=== PATIENT | female | born 1950 | race Caucasian/White ===

== ENCOUNTER 2017-10-02 18:58 | Inpatient (IN) | payer MEDICARE, BC ==
[2017-10-02] MEDS ORDERED: ONDANSETRON 4 MG/2 ML VIAL IVP STA (19:39)
[2017-10-02] MEDS: HYDROmorphone 1 MG/ML 1 ML SYRINGE IVP STA ×2 (19:46→19:48)
[2017-10-02] MEDS ORDERED: HYDROmorphone 1 MG/ML 1 ML SYRINGE IVP STA (19:48)
--- NOTE | 2017-10-02 20:20 | XR ---
EXAMINATION TYPE: XR chest 1V DATE OF EXAM: 10/02/2017 COMPARISON: NONE HISTORY: Preop TECHNIQUE: Single frontal view of the chest is obtained. FINDINGS: There is no heart failure nor confluent pneumonic infiltrate. There is left shoulder prost hesis. Costophrenic angles are clear. There is spurring in the thoracic spine. There is osteoarthriti s in the right shoulder joint. IMPRESSION: No active cardiopulmonary disease.
--- NOTE | 2017-10-02 20:20 | XR ---
EXAMINATION TYPE: XR Hip LT and AP Pelvis DATE OF EXAM: 10/02/2017 COMPARISON: NONE HISTORY: Hip pain TECHNIQUE: A single AP view of the pelvis is obtained. Two views of the left hip are obtained. FINDINGS: There is an acute comminuted intertrochanteric fracture of the left femur. Pelvic ring yvonne ears intact. There is no dislocation. CONCLUSION: Acute comminuted intratrochanteric fracture left femur with displacement up to 1 cm.
[2017-10-02 20:46] LABS: Basophils % (A) 0 %; CH 26.8; CHCM 32.6; Eosinophils # (A) 0.1 k/uL (0-0.7); Eosinophils % (A) 1 %; HCT 37.8 % (34.0-46.0); HDW 2.64; HGB 12.3 gm/dL (11.4-16.0); Luc # (Auto) 0.04; Luc % (Auto) 0; Lymphocytes # (A) 1.1 k/uL (1.0-4.8); Lymphocytes % (A) 11 %; MCHC 32.7 g/dL (31.0-37.0); MCV 82.6 fL (80.0-100.0); Mean Platelet Volume 8.3; Monocytes # (A) 0.3 k/uL (0-1.0); Monocytes % (A) 3 %; Neutrophils # (A) 8.6 k/uL (1.3-7.7); Neutrophils % (A) 85 %; RBC 4.57 m/uL (3.80-5.40); RDW 15.7 % (11.5-15.5); WBC 10.2 k/uL (3.8-10.6); WBC (Perox) 11.09
[2017-10-02 20:55] LABS: Partial Thromboplastin Time 23.4 sec (22.0-30.0); Prothrombin Time 10.3 sec (9.0-12.0)
[2017-10-02 21:00] LABS: ALT 39 U/L (9-52); AST 27 U/L (14-36); Alkaline Phosphatase 112 U/L (38-126); Anion Gap 9 mmol/L; Blood Urea Nitrogen 16 mg/dL (7-17); Calcium 9.2 mg/dL (8.4-10.2); Carbon Dioxide 23 mmol/L (22-30); Chloride 107 mmol/L (98-107); Glucose 135 mg/dL (74-99); Non-African American GFR(MDRD) >60 (>60 ml/min/1.73 sqM); Potassium 4.3 mmol/L (3.5-5.1); Sodium 139 mmol/L (137-145); Total Bilirubin 0.3 mg/dL (0.2-1.3); Total Protein 6.8 g/dL (6.3-8.2)
[2017-10-02] MEDS ORDERED: NALOXONE 0.4 MG/ML 1 ML VIAL IV PRN (21:13)
[2017-10-02] MEDS ORDERED: DIAZEPAM 5 MG/ML 2 ML INJ IVP PRN (21:16)
[2017-10-02 21:26] LABS: Appearance,Urine Clear (Clear); Bacteria,Urine Rare /hpf; Bilirubin,Urine Negative (Negative); Glucose,Urine (UA) 4+ (Negative); Ketones,Urine Trace (Negative); Leukocyte Esterase,Urine Negative (Negative); Nitrite,Urine Positive (Negative); PH, Urine 6.5 (5.0-8.0); Particle Count 14561; Protein,Urine Negative (Negative); RBC,Urine <1 /hpf (0-5); Specific Gravity,Urine 1.022 (1.001-1.035); Squamous Epithelial Cell,Urine <1 /hpf (0-4); UA Billing (MACRO vs. MICRO) MICRO; Urobilinogen,Urine <2.0 mg/dL (<2.0); WBC,Urine 3 /hpf (0-5)
--- NOTE | 2017-10-02 21:30 | ED ---
Fall HPI - General Chief Complaint: Fall Stated Complaint: Fall-no head injury Time Seen by Provider: 10/02/17 19:27 Source: patient, EMS Mode of arrival: EMS - History of Present Illness Initial Comments: 66 year-old female patient presents to the emergency department today for complaints of left hip pain. Patient states approximate 1.5 hours prior to arrival she was going down a step when she lost her footing and fell landing on the left side. She states that she had immediate pain to the left hip region and was unable to get up or ambulate. States her pain is mostly in the left anterior hip and into her left groin. She denies any numbness or tingling to the left leg. She did get 10 mg of morphine IV from EMS, but is currently rating her pain at a 7 out of 10 on a pain scale. She denies hitting her head or losing consciousness with this injury. She states that she did put her left hand out in front of her to try to catch herself and does have some mild left wrist pain. She denies any difficulty with range of motion to left wrist. Denies any numbness or tingling to her left hand. She denies any other injuries. Patient denies any headache, neck pain, back pain, chest pain, shortness of breath, dizziness, weakness, abdominal pain, nausea, vomiting, or difficulties with bowel movements or urination. - Related Data Home Medications Medication Instructions Recorded Confirmed Cholecalciferol [Vitamin D3] 1,000 unit PO DAILY 10/02/17 10/02/17 Empagliflozin [Jardiance] 25 mg PO DAILY 10/02/17 10/02/17 INSULIN LISPRO (HumaLOG) [HumaLOG] See Protocol SQ ACHS 10/02/17 10/02/17 Insulin Glargine [Lantus] 35 units SQ HS 10/02/17 10/02/17 Liraglutide [Victoza 2-Juan] 1.8 mg SQ HS 10/02/17 10/02/17 Lisinopril [Zestril] 20 mg PO BID 10/02/17 10/02/17 Montelukast [Singulair] 10 mg PO HS 10/02/17 10/02/17 PARoxetine [Paxil] 20 mg PO DAILY 10/02/17 10/02/17 Simvastatin [Zocor] 20 mg PO HS 10/02/17 10/02/17 Tolterodine Tartrate [Detrol LA] 4 mg PO DAILY 10/02/17 10/02/17 metFORMIN HCL 1,000 mg PO DAILY 10/02/17 10/02/17 Allergies Allergy/AdvReac Type Severity Reaction Status Date / Time codeine Allergy Rash/Hives Verified 10/02/17 19:34 erythromycin base Allergy Rash/Hives Verified 10/02/17 19:34 Review of Systems ROS Statement: Those systems with pertinent positive or pertinent negative responses have been documented in the HPI. ROS Other: All systems not noted in ROS Statement are negative. Past Medical History Past Medical History: Diabetes Mellitus, Hyperlipidemia, Hypertension History of Any Multi-Drug Resistant Organisms: None Reported Past Surgical History: Appendectomy, Section, Joint Replacement, Tonsillectomy Additional Past Surgical History / Comment(s): right knee replacement, left shoulder replacement Past Psychological History: Anxiety, Depression Smoking Status: Never smoker Past Alcohol Use History: Occasional Past Drug Use History: None Reported General Exam Limitations: no limitations General appearance: alert, in no apparent distress, other (This is a well- developed, well-nourished obese female patient in no acute distress. Vital signs upon presentation are temperature 97.8, pulse 86, respirations 24, blood pressure 146/63, pulse ox 99% on room air.) Head exam: Present: atraumatic, normocephalic, normal inspection Eye exam: Present: normal appearance, PERRL, EOMI. Absent: scleral icterus, conjunctival injection, nystagmus, periorbital swelling ENT exam: Present: normal exam, normal oropharynx, mucous membranes moist Neck exam: Present: normal inspection, full ROM, other (Nontender, no step-off, no deformity to firm midline palpation of the posterior cervical spine. Full range of motion without pain or limitation.). Absent: tenderness, meningismus, lymphadenopathy Respiratory exam: Present: normal lung sounds bilaterally. Absent: respiratory distress, wheezes, rales, rhonchi, stridor Cardiovascular Exam: Present: regular rate, normal rhythm, normal heart sounds. Absent: systolic murmur, diastolic murmur, rubs, gallop, clicks GI/Abdominal exam: Present: soft, normal bowel sounds. Absent: distended, tenderness, guarding, rebound, rigid Extremities exam: Present: tenderness (Tenderness over the anterior left hip), normal capillary refill, other (Skin to the left lower extremities pink, warm, and dry. Cap refills less than 3 seconds. Pedal posttibial pulses 2+ and equal bilaterally. Left hand and wrist skin is pink, warm, and dry. Cap refill to the left hand is less than 3 seconds. Radial pulses 2+ and equal bilaterally.). Absent: normal inspection (Left leg shortening and external rotation noted), full ROM (Decreased range of motion to left hip due to severe pain with attempts at moving it. Patient has full range of motion to the left wrist without pain or limitation.), pedal edema, joint swelling, calf tenderness Back exam: Present: normal inspection. Absent: vertebral tenderness Neurological exam: Present: alert, oriented X3, CN II-XII intact Psychiatric exam: Present: normal affect, normal mood Skin exam: Present: warm, dry, intact, normal color. Absent: rash Course Vital Signs 10/02/17 10/02/17 19:07 21:16 Temperature 97.8 F 98.0 F Pulse Rate 86 99 Respiratory 24 20 Rate Blood Pressure 146/63 134/60 O2 Sat by Pulse 99 95 Oximetry Medical Decision Making - Medical Decision Making 66-year-old female patient presents to the emergency department today for evaluation of left hip pain after a fall. Physical examination did reveal shortening and external rotation of the left leg. Distal pulses are intact. Skin is pink, warm, and dry. Neurovascular status is intact. Patient is also complaining of some left wrist discomfort however has full range of motion, no anatomical snuffbox tenderness, skin is pink, warm, and dry, and pulses are intact. She reports that the pain is mild. X-ray did show a comminuted mildly displaced intertrochanteric fracture of the left proximal femur. We did admit to Dr. Jimenez orthopedics, my attending Dr. Moreno did speak to him and he accepted patient. I did inform Jasvir Venegas with [facility] of medical consultation. Presurgical labs, EKG, and chest x-ray were obtained. - Lab Data Result diagrams: 10/02/17 20:32 10/02/17 20:32 Lab Results 10/02/17 10/02/17 10/02/17 Range/Units 20:32 20:32 20:32 WBC 10.2 (3.8-10.6) k/uL RBC 4.57 (3.80-5.40) m/uL Hgb 12.3 (11.4-16.0) gm/dL Hct 37.8 (34.0-46.0) % MCV 82.6 (80.0-100.0) fL MCH 27.0 (25.0-35.0) pg MCHC 32.7 (31.0-37.0) g/dL RDW 15.7 H (11.5-15.5) % Plt Count 168 (150-450) k/uL Neutrophils % 85 % Lymphocytes % 11 % Monocytes % 3 % Eosinophils % 1 % Basophils % 0 % Neutrophils # 8.6 H (1.3-7.7) k/uL Lymphocytes # 1.1 (1.0-4.8) k/uL Monocytes # 0.3 (0-1.0) k/uL Eosinophils # 0.1 (0-0.7) k/uL Basophils # 0.0 (0-0.2) k/uL PT 10.3 (9.0-12.0) sec INR 1.0 (<1.2) APTT 23.4 (22.0-30.0) sec Sodium 139 (137-145) mmol/L Potassium 4.3 (3.5-5.1) mmol/L Chloride 107 (98-107) mmol/L Carbon Dioxide 23 (22-30) mmol/L Anion Gap 9 mmol/L BUN 16 (7-17) mg/dL Creatinine 0.80 (0.52-1.04) mg/dL Est GFR (MDRD) Af Amer >60 (>60 ml/min/1.73 sqM) Est GFR (MDRD) Non-Af >60 (>60 ml/min/1.73 sqM) Glucose 135 H (74-99) mg/dL Calcium 9.2 (8.4-10.2) mg/dL Total Bilirubin 0.3 (0.2-1.3) mg/dL AST 27 (14-36) U/L ALT 39 (9-52) U/L Alkaline Phosphatase 112 (38-126) U/L Total Protein 6.8 (6.3-8.2) g/dL Albumin 3.9 (3.5-5.0) g/dL Urine Color Urine Appearance (Clear) Urine pH (5.0-8.0) Ur Specific Bellamy (1.001-1.035) Urine Protein (Negative) Urine Glucose (UA) (Negative) Urine Ketones (Negative) Urine Blood (Negative) Urine Nitrite (Negative) Urine Bilirubin (Negative) Urine Urobilinogen (<2.0) mg/dL Ur Leukocyte Esterase (Negative) Urine RBC (0-5) /hpf Urine WBC (0-5) /hpf Ur Squamous Epith Cells (0-4) /hpf Urine Bacteria (None) /hpf 10/02/17 Range/Units 21:10 WBC (3.8-10.6) k/uL RBC (3.80-5.40) m/uL Hgb (11.4-16.0) gm/dL Hct (34.0-46.0) % MCV (80.0-100.0) fL MCH (25.0-35.0) pg MCHC (31.0-37.0) g/dL RDW (11.5-15.5) % Plt Count (150-450) k/uL Neutrophils % % Lymphocytes % % Monocytes % % Eosinophils % % Basophils % % Neutrophils # (1.3-7.7) k/uL Lymphocytes # (1.0-4.8) k/uL Monocytes # (0-1.0) k/uL Eosinophils # (0-0.7) k/uL Basophils # (0-0.2) k/uL PT (9.0-12.0) sec INR (<1.2) APTT (22.0-30.0) sec Sodium (137-145) mmol/L Potassium (3.5-5.1) mmol/L Chloride (98-107) mmol/L Carbon Dioxide (22-30) mmol/L Anion Gap mmol/L BUN (7-17) mg/dL Creatinine (0.52-1.04) mg/dL Est GFR (MDRD) Af Amer (>60 ml/min/1.73 sqM) Est GFR (MDRD) Non-Af (>60 ml/min/1.73 sqM) Glucose (74-99) mg/dL Calcium (8.4-10.2) mg/dL Total Bilirubin (0.2-1.3) mg/dL AST (14-36) U/L ALT (9-52) U/L Alkaline Phosphatase (38-126) U/L Total Protein (6.3-8.2) g/dL Albumin (3.5-5.0) g/dL Urine Color Yellow Urine Appearance Clear (Clear) Urine pH 6.5 (5.0-8.0) Ur Specific Bellamy 1.022 (1.001-1.035) Urine Protein Negative (Negative) Urine Glucose (UA) 4+ H (Negative) Urine Ketones Trace H (Negative) Urine Blood Negative (Negative) Urine Nitrite Positive H (Negative) Urine Bilirubin Negative (Negative) Urine Urobilinogen <2.0 (<2.0) mg/dL Ur Leukocyte Esterase Negative (Negative) Urine RBC <1 (0-5) /hpf Urine WBC 3 (0-5) /hpf Ur Squamous Epith Cells <1 (0-4) /hpf Urine Bacteria Rare H (None) /hpf 10/02/17 22:05 EKG obtained at 2043 shows normal sinus rhythm with occasional PVCs. Ventricular rate is 99, TN interval is 200, QRS duration is 86, QT is 338, QTC is 433. No evidence of ST elevation or depression. - Radiology Data Radiology results: report reviewed, image reviewed Single AP view of the pelvis and 2 views of the left hip are obtained and show an acute comminuted intratrochanteric fracture of the left femur. Pelvic ring appears intact. There is no dislocation. Conclusion by Dr. Montesinos shows acute comminuted intratrochanteric fracture of the left femur with displacement up to 1 cm. Two-view x-ray of the chest shows no heart failure nor confluent pneumonic infiltrate. There is left shoulder prosthesis. Costophrenic angles are clear. There is spurring in the thoracic spine. There is osteoarthritis in the right shoulder joint. Impression by Dr. Montesinos shows no active cardiopulmonary disease. Disposition Clinical Impression: Closed left hip fracture Disposition: ADMITTED IP TO THIS [facility] Condition: Serious Referrals: Halima Freeman DO [Primary Care Provider] - 1-2 days Decision to Admit Reason: Admit from EC Decision Date: 10/02/17 Decision Time: 21:29
[2017-10-02] MEDS: HYDROmorphone 1 MG/ML 1 ML SYRINGE IVP PRN (21:54)
[2017-10-02] MEDS: SODIUM CHLORIDE 0.9% 1,000 ML IV SCH (21:56)
--- NOTE | 2017-10-02 22:53 | P.CONS ---
History of Present Illness - Reason for Consult Consult date: 10/02/17 Management of hypertension and diabetes - Chief Complaint Left hip pain - History of Present Illness The patient is a 66-year-old female with a past with a history of type 2 diabetes essential hypertension and hyper lipidemia who presents to the ER from [facility] due to complaints of severe left hip pain that began after a fall today. The patient reports she was at her sister's house and was entering the garage and she missed a step and went down on her left hip she attempted to catch herself by grabbing onto a railing, however she was unable to get up after her fall and was unable to bear weight or ambulate. She was then taken to the hospital and arrived via private vehicle, she denied any precipitating symptoms such as palpitations chest pain or shortness of breath prior to her fall. She reports she simply missed a step. She does report that her chronic medical issues are under control she reports a recent A1c of 7.1. X -rays done in the ER showed acute comminuted intratrochanteric fracture of the left femur with displacement up to 1 cm Review of Systems All other 14 point review of systems negative except per HPI Past Medical History Past Medical History: Diabetes Mellitus, Hyperlipidemia, Hypertension History of Any Multi-Drug Resistant Organisms: None Reported Past Surgical History: Appendectomy, Section, Joint Replacement, Tonsillectomy Additional Past Surgical History / Comment(s): right knee replacement, left shoulder replacement Past Psychological History: Anxiety, Depression Smoking Status: Never smoker Past Alcohol Use History: Occasional Past Drug Use History: None Reported Medications and Allergies Home Medications Medication Instructions Recorded Confirmed Type Cholecalciferol [Vitamin D3] 1,000 unit PO DAILY 10/02/17 10/02/17 History Empagliflozin [Jardiance] 25 mg PO DAILY 10/02/17 10/02/17 History INSULIN LISPRO (HumaLOG) [HumaLOG] See Protocol SQ ACHS 10/02/17 10/02/17 History Insulin Glargine [Lantus] 35 units SQ HS 10/02/17 10/02/17 History Liraglutide [Victoza 2-Juan] 1.8 mg SQ HS 10/02/17 10/02/17 History Lisinopril [Zestril] 20 mg PO BID 10/02/17 10/02/17 History Montelukast [Singulair] 10 mg PO HS 10/02/17 10/02/17 History PARoxetine [Paxil] 20 mg PO DAILY 10/02/17 10/02/17 History Simvastatin [Zocor] 20 mg PO HS 10/02/17 10/02/17 History Tolterodine Tartrate [Detrol LA] 4 mg PO DAILY 10/02/17 10/02/17 History metFORMIN HCL 1,000 mg PO DAILY 10/02/17 10/02/17 History Allergies Allergy/AdvReac Type Severity Reaction Status Date / Time codeine Allergy Rash/Hives Verified 10/02/17 19:34 erythromycin base Allergy Rash/Hives Verified 10/02/17 19:34 Physical Exam Vitals: Vital Signs Temp Pulse Resp BP Pulse Ox 10/02/17 22:02 98.0 F 96 20 113/53 96 10/02/17 21:16 98.0 F 99 20 134/60 95 10/02/17 19:07 97.8 F 86 24 146/63 99 Intake and Output 10/02/17 10/02/17 10/02/17 06:59 14:59 22:59 Output Total 400 Balance -400 Output: Urine 400 Uretheral (English) 400 Other: Weight 133.81 kg Patient Weight 10/03/17 06:59 Weight 133.81 kg Constitutional: No acute distress, conversant, pleasant Eyes: Anicteric sclerae, moist conjunctiva, no lid-lag, PERRLA ENMT: NC/AT,Oropharynx clear, no erythema, exudates Neck:Supple, FROM, no masses, or JVD, No carotid bruits; No thyromegaly Lungs: Clear to auscultation, Clear to percussion, Normal respiratory effort, no accessory muscle use Cardiovascular: Heart regular in rate and rhythm, No murmurs, gallops, or rubs no peripheral edema Abdominal: Soft Nontender, nom distended, no guarding, no rebound or rigidity, Normoactive bowel sounds No hepatomegaly, No splenomegaly, No palpable mass No abdominal wall hernia noted Skin: Normal temperature, tone, texture, turgor, No induration No subcutaneous nodules, No rash, lesions, No ulcers Extremities:present: tenderness (Tenderness over the anterior left hip), normal capillary refill, other (Skin to the left lower extremities pink, warm, and dry. Cap refills less than 3 seconds. Pedal posttibial pulses 2+ and equal bilaterally. Left hand and wrist skin is pink, warm, and dry. Cap refill to the left hand is less than 3 seconds. Radial pulses 2+ and equal bilaterally.) . Absent: normal inspection (Left leg shortening and external rotation noted), full ROM (Decreased range of motion to left hip due to severe pain with attempts at moving it. Patient has full range of motion to the left wrist without pain or limitation.), pedal edema, joint swelling, calf tenderness Psychiatric: Alert and oriented to person, place and time, Appropriate affect Intact judgement Neuro: Muscles Strength 5/5 in all 4 extremities, Sensation to light touch grossly present throughout, Cranial nerves II-XII grossly intact. No focal sensory deficits Results CBC & Chem 7: 10/02/17 20:32 10/02/17 20:32 Labs: Abnormal Lab Results - Last 24 Hours (Table) 10/02/17 10/02/17 10/02/17 Range/Units 20:32 20:32 21:10 RDW 15.7 H (11.5-15.5) % Neutrophils # 8.6 H (1.3-7.7) k/uL Glucose 135 H (74-99) mg/dL Urine Glucose (UA) 4+ H (Negative) Urine Ketones Trace H (Negative) Urine Nitrite Positive H (Negative) Urine Bacteria Rare H (None) /hpf Assessment and Plan (1) Closed intertrochanteric fracture of left femur Current Visit: Yes Status: Acute Code(s): S72.142A - DISPLACED INTERTROCHANTERIC FRACTURE OF LEFT FEMUR, INIT SNOMED Code(s): 67850319 (2) Essential hypertension Current Visit: Yes Status: Acute Code(s): I10 - ESSENTIAL (PRIMARY) HYPERTENSION SNOMED Code(s): 71331154 (3) Type 2 diabetes mellitus Current Visit: Yes Status: Acute Code(s): E11.9 - TYPE 2 DIABETES MELLITUS WITHOUT COMPLICATIONS SNOMED Code(s): 21845875 (4) CARLITA (obstructive sleep apnea) Current Visit: Yes Status: Acute Code(s): G47.33 - OBSTRUCTIVE SLEEP APNEA ( ADULT) (PEDIATRIC) SNOMED Code(s): 46652370 Plan: The patient is admitted to orthopedic service Dr. Jimenez anticipate a greater than TWO midnight stay for acute closed left communitative displaced femoral fracture. EKG showing sinus rhythm, Patient's vital signs are normal will continue with her home antihypertensive regimen at this time patient she is cleared preoperatively for surgery. We'll start the patient on DVT prophylaxis with Lovenox, we'll hold her metformin will give her Lantus tonight. continue her home CPAP settings, Deferred to primary team regarding pain management it appears that she is doing well with Dilaudid. We'll continue to monitor her clinical course
[2017-10-03] MEDS ORDERED: HYDROmorphone 1 MG/ML 1 ML SYRINGE ONE (01:00)
[2017-10-03] MEDS ORDERED: INSULIN DETEMIR 100 UNIT/ML 10 ML VIAL SQ ONE (01:00)
[2017-10-03] MEDS: ENOXAPARIN 40 MG/0.4 ML SYRINGE SQ SCH ×2 (03:45→07:22)
[2017-10-03] MEDS: INSULIN DETEMIR 100 UNIT/ML 10 ML VIAL SQ SCH ×2 (03:45→21:51)
[2017-10-03] MEDS: HYDROmorphone 1 MG/ML 1 ML SYRINGE IVP PRN ×3 (04:20→12:57)
[2017-10-03 07:13] LABS: Glucose,Whole Blood 153 mg/dL (75-99)
[2017-10-03 07:22] VITALS: BMI 49.1
[2017-10-03] MEDS: CHOLECALCIFEROL 1,000 UNIT TAB PO SCH (08:03)
[2017-10-03] MEDS: LISINOPRIL 20 MG TAB PO SCH ×2 (08:04→21:51)
[2017-10-03] MEDS: PARoxetine 20 MG TAB PO SCH (08:04)
[2017-10-03] MEDS: JARDIANCE 25MG PO SCH (08:04)
[2017-10-03] MEDS: OXYBUTYNIN XL 5 MG TAB.ER.24 PO SCH (08:04)
--- NOTE | 2017-10-03 08:29 | P.HPOR ---
History of Present Illness H&P Date: 10/03/17 This is a 66-year-old female who is admitted for left hip fracture. Patient states she missed a step while leaving her friend's house and fell onto the left hip and left wrist. Patient presented to the emergency room for evaluation and was found to have a left hip fracture. Patient states this morning she developed increasing pain to the left wrist with some mild bruising and swelling. Patient states her pain has been under control. Patient denies any head injury or loss of consciousness with this fall. Patient denies any numbness, weakness or tingling. Review of Systems See HPI. Past Medical History Past Medical History: Diabetes Mellitus, Hyperlipidemia, Hypertension History of Any Multi-Drug Resistant Organisms: None Reported Past Surgical History: Appendectomy, Section, Joint Replacement, Tonsillectomy Additional Past Surgical History / Comment(s): right knee replacement, left shoulder replacement Past Psychological History: Anxiety, Depression Smoking Status: Never smoker Past Alcohol Use History: Occasional Past Drug Use History: None Reported Medications and Allergies Home Medications Medication Instructions Recorded Confirmed Type Cholecalciferol [Vitamin D3] 1,000 unit PO DAILY 10/02/17 10/02/17 History Empagliflozin [Jardiance] 25 mg PO DAILY 10/02/17 10/02/17 History INSULIN LISPRO (HumaLOG) [HumaLOG] See Protocol SQ ACHS 10/02/17 10/02/17 History Insulin Glargine [Lantus] 35 units SQ HS 10/02/17 10/02/17 History Liraglutide [Victoza 2-Juan] 1.8 mg SQ HS 10/02/17 10/02/17 History Lisinopril [Zestril] 20 mg PO BID 10/02/17 10/02/17 History Montelukast [Singulair] 10 mg PO HS 10/02/17 10/02/17 History PARoxetine [Paxil] 20 mg PO DAILY 10/02/17 10/02/17 History Simvastatin [Zocor] 20 mg PO HS 10/02/17 10/02/17 History Tolterodine Tartrate [Detrol LA] 4 mg PO DAILY 10/02/17 10/02/17 History metFORMIN HCL 1,000 mg PO DAILY 10/02/17 10/02/17 History Allergies Allergy/AdvReac Type Severity Reaction Status Date / Time codeine Allergy Rash/Hives Verified 10/02/17 19:34 erythromycin base Allergy Rash/Hives Verified 10/02/17 19:34 Physical Examination On exam patient is in no acute distress and is alert and oriented 3. Left lower extremity is shortened and externally rotated. Patient has full foot and ankle motion. Calf is soft and nontender. Left lower extremity is warm and well perfused. Dorsalis pedis pulse is 2+. Neurovascular status and circulatory status are intact. Exam of the left wrist there is mild swelling to the dorsal aspect and faint ecchymosis to the volar aspect of the left wrist. Patient has limited range of motion of the left wrist due to pain and swelling. Patient has full range of motion of fingers the left hand. Neurovascular status and circulatory status are intact. Results X-rays of the left hip and pelvis show a displaced intertrochanteric fracture of the left femur. X-rays of the left wrist are pending. - Labs Labs: Abnormal Lab Results - Last 24 Hours (Table) 10/02/17 10/02/17 10/02/17 Range/Units 20:32 20:32 21:10 RDW 15.7 H (11.5-15.5) % Neutrophils # 8.6 H (1.3-7.7) k/uL Glucose 135 H (74-99) mg/dL POC Glucose (mg/dL) (75-99) mg/dL Urine Glucose (UA) 4+ H (Negative) Urine Ketones Trace H (Negative) Urine Nitrite Positive H (Negative) Urine Bacteria Rare H (None) /hpf 10/03/17 Range/Units 07:09 RDW (11.5-15.5) % Neutrophils # (1.3-7.7) k/uL Glucose (74-99) mg/dL POC Glucose (mg/dL) 153 H (75-99) mg/dL Urine Glucose (UA) (Negative) Urine Ketones (Negative) Urine Nitrite (Negative) Urine Bacteria (None) /hpf H & H 10/02/17 Range/Units 20:32 Hgb 12.3 (11.4-16.0) gm/dL Hct 37.8 (34.0-46.0) % Coagulation 10/02/17 Range/Units 20:32 INR 1.0 (<1.2) Result Diagrams: 10/02/17 20:32 10/02/17 20:32 Assessment and Plan (1) Closed intertrochanteric fracture of left femur Current Visit: Yes Status: Acute Code(s): S72.142A - DISPLACED INTERTROCHANTERIC FRACTURE OF LEFT FEMUR, INIT SNOMED Code(s): 69925461 Plan: #1. Patient is to be NPO. #2. Continue pain control. #3. X-rays of the left wrist are pending. #4. Closed reduction and insertion of intertrochanteric nail to the left femur is scheduled for today. Medical clearance and consent are pending.
--- NOTE | 2017-10-03 08:32 | XR ---
EXAMINATION TYPE: XR wrist complete LT DATE OF EXAM: 10/03/2017 COMPARISON: NONE HISTORY: Pain TECHNIQUE: Four views submitted. FINDINGS: The osseous structures are intact. Severe narrowing of the first carpometacarpal joint. Narrowing of the radiocarpal joint. IMPRESSION: 1. No definite acute fracture or dislocation if symptoms persist, follow-up study in 7 to 10 days wo uld be suggested. 2. Severe arthritic changes in a pattern suggestive of osteoarthritis.
--- NOTE | 2017-10-03 09:15 | P.PN ---
Subjective Progress Note Date: 10/03/17 Principal diagnosis: hip fracture 66-year-old female that presented after a fall found to have a hip fracture. Patient complaining of some pain but says pain medicine is helping. No chest pains no palpitations no shortness of breath. Objective - Vital Signs Vital signs: Vital Signs Temp 98.6 F 10/03/17 00:42 Pulse 94 10/03/17 00:42 Resp 17 10/03/17 08:25 BP 131/65 10/03/17 00:42 Pulse Ox 93 L 10/03/17 00:42 Intake & Output 10/02/17 10/03/17 10/03/17 18:59 06:59 18:59 Intake Total 80 Output Total 400 Balance -320 Weight 133.81 kg 133.81 kg Intake: Intake, IV Titration 80 Amount Sodium Chloride 0.9% 1, 80 000 ml @ 20 mls/hr IV . Q24H [facility] Rx#:[id number] Output: Urine 400 Uretheral (English) 400 Other: Voiding Method Indwelling Catheter - Exam gen:alert and oriented lungs:clear to auscultation heart:s1s2 abdomen:soft and depressible,non tender ext:no edema - Labs CBC & Chem 7: 10/02/17 20:32 10/02/17 20:32 Labs: Abnormal Lab Results - Last 24 Hours (Table) 10/02/17 10/02/17 10/02/17 Range/Units 20:32 20:32 21:10 RDW 15.7 H (11.5-15.5) % Neutrophils # 8.6 H (1.3-7.7) k/uL Glucose 135 H (74-99) mg/dL POC Glucose (mg/dL) (75-99) mg/dL Urine Glucose (UA) 4+ H (Negative) Urine Ketones Trace H (Negative) Urine Nitrite Positive H (Negative) Urine Bacteria Rare H (None) /hpf 10/03/17 Range/Units 07:09 RDW (11.5-15.5) % Neutrophils # (1.3-7.7) k/uL Glucose (74-99) mg/dL POC Glucose (mg/dL) 153 H (75-99) mg/dL Urine Glucose (UA) (Negative) Urine Ketones (Negative) Urine Nitrite (Negative) Urine Bacteria (None) /hpf Assessment and Plan (1) Closed intertrochanteric fracture of left femur Narrative/Plan: Plans to go to or for repair today for repair Currently nothing by mouth Current Visit: Yes Status: Acute Code(s): S72.142A - DISPLACED INTERTROCHANTERIC FRACTURE OF LEFT FEMUR, INIT SNOMED Code(s): 50000206 (2) Hyperlipidemia Narrative/Plan: Continue Lipitor Current Visit: Yes Status: Acute Code(s): E78.5 - HYPERLIPIDEMIA, UNSPECIFIED SNOMED Code(s): 81732618 (3) Essential hypertension Narrative/Plan: Continue lisinopril Current Visit: Yes Status: Acute Code(s): I10 - ESSENTIAL (PRIMARY) HYPERTENSION SNOMED Code(s): 16801549 (4) CARLITA (obstructive sleep apnea) Narrative/Plan: Uses CPAP at home Current Visit: Yes Status: Acute Code(s): G47.33 - OBSTRUCTIVE SLEEP APNEA ( ADULT) (PEDIATRIC) SNOMED Code(s): 51086242 (5) Type 2 diabetes mellitus Narrative/Plan: levemir 35 units at at bedtime Accu-Cheks before meals and at bedtime with sliding scale insulin Current Visit: Yes Status: Acute Code(s): E11.9 - TYPE 2 DIABETES MELLITUS WITHOUT COMPLICATIONS SNOMED Code(s): 37645589 Plan: EKG showing sinus rhythm Chest x-ray is clear Patient is at low to moderate risk for surgery.
[2017-10-03] MEDS: SODIUM CHLORIDE 0.9% 1,000 ML IV SCH (10:20)
[2017-10-03 11:49] LABS: Glucose,Whole Blood 122 mg/dL (75-99)
[2017-10-03] MEDS ORDERED: IV FLUID CONTINUATION 1,000 ML IV ONE (15:19)
[2017-10-03 15:29] LABS: Glucose,Whole Blood 104 mg/dL (75-99)
[2017-10-03] MEDS ORDERED: ONDANSETRON 4 MG/2 ML VIAL IVP ONE (15:35)
[2017-10-03] MEDS ORDERED: ceFAZolin 3 GM in SODIUM CHLORIDE 0.9% 100 ML IVPB ONE (15:50)
[2017-10-03] MEDS ORDERED: SUCCINYLCHOLINE CHLORIDE VIAL 200 MG/10 ML VIAL IV ONE (16:04)
[2017-10-03] MEDS ORDERED: ONDANSETRON 4 MG/2 ML VIAL ONE (16:04)
[2017-10-03] MEDS ORDERED: PHENYLEPHRINE-0.9% NACL SYG 1 MG/10 ML SYRINGE ONE (16:04)
[2017-10-03] MEDS ORDERED: ePHEDrine SULFATE/0.9% NACL/PF 50 MG/5 ML SYRINGE IV ONE (16:04)
[2017-10-03] MEDS ORDERED: fentaNYL (PF) 50 MCG/ML 2 ML AMP ONE (16:04)
[2017-10-03] MEDS ORDERED: ROCURONIUM BROMIDE 10 MG/ML 10 ML VIAL IV ONE (16:04)
[2017-10-03] MEDS ORDERED: PROPOFOL 10 MG/ML 20 ML VIAL IV ONE (16:04)
[2017-10-03] MEDS ORDERED: DEXAMETHASONE SOD PHOS (MDV) 100 MG/10 ML VIAL ONE (16:04)
[2017-10-03] MEDS ORDERED: LIDOCAINE 1% INJ 10MG/ML (20 ML MDV) ONE (16:04)
[2017-10-03] MEDS ORDERED: HYDROmorphone (PF) 1 MG/ML ONE (16:04)
[2017-10-03] MEDS ORDERED: NEOSTIGMINE 1 MG/ML 10 ML VIAL ONE (16:04)
[2017-10-03] MEDS ORDERED: KETAMINE 10 MG/ML 20 ML VIAL ONE (16:04)
[2017-10-03] MEDS ORDERED: MIDAZOLAM 2 MG/2 ML VIAL ONE (16:04)
[2017-10-03] MEDS ORDERED: GLYCOPYRROLATE 0.2 MG/ML 2 ML VIAL ONE (16:04)
[2017-10-03] MEDS ORDERED: LACTATED RINGERS 1,000 ML IV ONE (17:18)
[2017-10-03] MEDS ORDERED: ceFAZolin 1,000 MG in SODIUM CHLORIDE 0.9% 1,000 ML IRRIGATION ONE (17:23)
[2017-10-03 17:53] LABS: Glucose,Whole Blood 150 mg/dL (75-99)
--- NOTE | 2017-10-03 18:11 | P.OP ---
Date of Procedure: 10/03/17 Preoperative Diagnosis: 4 part intratrochanteric fracture left hip Postoperative Diagnosis: Four-part intertrochanteric fracture left hip Procedure(s) Performed: Close reduction and intramedullary hip screw fixation of the left hip Implants: [employer] Tri[employer] intertan nail 125, 11.5 mm x 18 cm. [employer] Intertan integrated interlocking lag screw, 100 mm lag screw, 95 mm compression screw. [employer] L-P screw, 5.0 mm x 35 mm. Anesthesia: GETA Surgeon: Selvin Jimenez Elementary Teacher #1: Asia Castaneda Estimated Blood Loss (ml): 250 Pathology: none sent Condition: stable Disposition: PACU Indications for Procedure: This is a 66-year-old female that fell at home and sustained a four-part intertrochanteric fracture of her left hip after discussing the surgical and nonsurgical treatment options with her at length and are with her family, I recommended a close reduction and intramedullary hip screw fixation of her left hip. Informed consent was obtained. Operative Findings: The operative findings are consistent with a four-part intertrochanteric fracture of the left hip. Description of Procedure: The patient was seen in the preoperative area, consent was reviewed, and the operative site was marked with a skin marker. The patient was brought to the operating room and placed on the operating room table. Anesthesia was administered by the anesthesia department. 2 g of Ancef were administered intravenously. The patient was placed supine on the fracture table with the fractured extremity in traction boot. His other extremity was placed in a well leg olea and his bony prominences were padded. A universal timeout was then performed which confirmed the patient's name, surgical site, ALLERGIES, and consent. Fracture reduction was performed with traction and adduction maneuver which was confirmed with fluoroscopy. After reduction was performed, his extremity was then prepped and draped in the usual sterile fashion. Utilizing fluoroscopy to identify the tip of the greater trochanter, a 3 cm incision was made just proximal to the greater trochanter. Utilizing a curved awl, the starting hole was created at the tip of the greater trochanter and centralized in the AP plane. These locations were confirmed by fluoroscopy. Guidewire was then inserted down the medullary canal. Sequentially reaming of the femur was performed to 13 mm distally and 17 mm proximally. After reaming, appropriate size nail was inserted over the guidewire. The nail was inserted to the appropriate depth and the guidewire was removed. The lag screw targeting device was placed in the jig and a small skin incision was made and the targeting guide was placed down to bone. Utilizing the distally threaded guidewire, the guidewire was placed in the appropriate position in the femoral head, both anterior, posterior and mediolateral. Next, the drill for the second screw was then placed through the guide and drilled to the appropriate depth. The guidewire was measured and the appropriate depth was then reamed. The final size screw was placed to the appropriate depth. Traction was released and the fracture site was compressed with the aid of the second screw. The proximal drill guide was then removed and the distal drill guide was then inserted in the jig. Skin incision was made down to bone and the distal drill guide was then placed. Distal hole was then drilled and measured to the appropriate depth. Distal screw was then placed. The entire jig was then removed and final fluoroscopic x-rays were obtained. The wounds were then irrigated copiously with saline solution. Fascia was closed with 0-Vicryl. Subcutaneous tissues were closed with 2-0 Vicryl and the skin was closed with mathew. Sterile dressings were applied. The patient was transported to the recovery room in stable condition. The casino assistant manager Asia ADLER was required due the complexity of the surgery the need for skilled surgical training specialist.
[2017-10-03 18:35] LABS: Glucose,Whole Blood 182 mg/dL (75-99)
[2017-10-03] MEDS ORDERED: MAGNESIUM HYDROXIDE 2,400 MG/10 ML CUP PO PRN (18:40)
[2017-10-03] MEDS ORDERED: NALOXONE 0.4 MG/ML 1 ML VIAL IV PRN (18:40)
[2017-10-03] MEDS ORDERED: hydrOXYzine PAMOATE 25 MG CAP PO PRN (18:40)
[2017-10-03] MEDS ORDERED: ONDANSETRON 4 MG/2 ML VIAL IVP PRN (18:40)
[2017-10-03] MEDS ORDERED: traMADol 50 MG TAB PO PRN (18:46)
--- NOTE | 2017-10-03 19:47 | FL ---
EXAMINATION TYPE: FL guidance operating room, XR Hip Complete LT DATE OF EXAM: 10/03/2017 CLINICAL HISTORY: Left hip fracture. TECHNIQUE: Fluoroscopy. Complete 2 views left hip. COMPARISON: Pelvic and left hip x-ray from yesterday.. FINDINGS: Fluoroscopic guidance was provided during open reduction internal fixation procedure perfo rmed by Dr. Jimenez. A total of 2 minutes 5 seconds of fluoroscopic time was utilized during the pr ocedure and 4 spot images are acquired. Intraoperative images acquired show placement of large intramedullary octavia with distal transverse fixa ting screw and 2 larger femoral necks fixating screws through intertrochanteric fracture of left prox imal femur. Satisfactory alignment is seen on intraoperative images provided. IMPRESSION: As Above.
[2017-10-03 20:32] LABS: Glucose,Whole Blood 192 mg/dL (75-99)
[2017-10-03 20:53] LABS: Basophils % (A) 0 %; CH 26.4; CHCM 30.9; Eosinophils % (A) 0 %; HDW 2.67; HGB 10.7 gm/dL (11.4-16.0); Hypochromasia Slight; Luc # (Auto) 0.06; Luc % (Auto) 0; Lymphocytes # (A) 0.6 k/uL (1.0-4.8); Lymphocytes % (A) 3 %; MCH 25.6 pg (25.0-35.0); MCHC 29.7 g/dL (31.0-37.0); MCV 86.1 fL (80.0-100.0); Mean Platelet Volume 8.4; Monocytes # (A) 0.4 k/uL (0-1.0); Monocytes % (A) 2 %; Neutrophils % (A) 94 %; RBC 4.19 m/uL (3.80-5.40); RDW 15.7 % (11.5-15.5); WBC 17.1 k/uL (3.8-10.6); WBC (Perox) 16.72
[2017-10-03] MEDS: SENNOSIDES-DOCUSATE SODIUM 1 EACH TAB PO SCH (21:50)
[2017-10-03] MEDS: traMADol 50 MG TAB PO PRN (21:50)
[2017-10-03] MEDS: ATORVASTATIN 10 MG TAB PO SCH (21:51)
[2017-10-03] MEDS: MONTELUKAST 10 MG TAB PO SCH (21:51)
[2017-10-03 22:17] LABS: Glucose,Whole Blood 182 mg/dL (75-99)
[2017-10-03] MEDS: VICTOZA SQ SCH (22:23)
[2017-10-04] MEDS: traMADol 50 MG TAB PO PRN ×2 (01:11→10:24)
[2017-10-04] MEDS: ceFAZolin 3 GM in SODIUM CHLORIDE 0.9% 100 ML IVPB SCH ×2 (01:39→10:25)
[2017-10-04] MEDS: SODIUM CHLORIDE 0.9% 1,000 ML IV SCH ×3 (03:16→17:00)
[2017-10-04 08:26] LABS: Glucose,Whole Blood 162 mg/dL (75-99)
--- NOTE | 2017-10-04 08:52 | P.PN ---
Subjective Progress Note Date: 10/04/17 6-year-old female who is status post closed reduction and intramedullary hip screw fixation of the left hip. This is postoperative day #1. Patient states she is feeling well and that her pain is under control. Patient has no new complaints today. Objective - Vital Signs Vital signs: Vital Signs Temp 97.8 F 10/04/17 08:43 Pulse 98 10/04/17 08:43 Resp 18 10/04/17 08:43 BP 150/65 10/04/17 08:43 Pulse Ox 94 L 10/04/17 08:43 Intake & Output 10/03/17 10/04/17 10/04/17 18:59 06:59 18:59 Intake Total 1761 1450 Output Total 1200 1300 Balance 561 150 Weight 133.81 kg Intake: IV 1761 Sodium Chloride 0.9% 1, 560 000 ml @ 70 mls/hr IV . [id number] [facility] Rx#:[id number] Intake, IV Titration 700 Amount Sodium Chloride 0.9% 1, 700 000 ml @ 70 mls/hr IV . [id number] [facility] Rx#:[id number] Oral 750 Output: Urine 950 1300 Uretheral (English) 700 Estimated Blood Loss 250 Other: Voiding Method Indwelling Catheter Indwelling Catheter - Exam On exam patient is in no acute distress and is alert and oriented 3. Incisions are clean, dry, and intact. Mild soft tissue swelling. Full foot and ankle motion without difficulty. Calf is soft and nontender. Neurovascular status and circulatory status are intact. - Labs CBC & Chem 7: 10/03/17 20:32 10/02/17 20:32 Labs: Abnormal Lab Results - Last 24 Hours (Table) 10/03/17 10/03/17 10/03/17 Range/Units 11:39 15:24 17:41 WBC (3.8-10.6) k/uL Hgb (11.4-16.0) gm/dL MCHC (31.0-37.0) g/dL RDW (11.5-15.5) % Neutrophils # (1.3-7.7) k/uL Lymphocytes # (1.0-4.8) k/uL POC Glucose (mg/dL) 122 H 104 H 150 H (75-99) mg/dL 10/03/17 10/03/17 10/03/17 Range/Units 18:33 19:48 20:32 WBC 17.1 H (3.8-10.6) k/uL Hgb 10.7 L (11.4-16.0) gm/dL MCHC 29.7 L (31.0-37.0) g/dL RDW 15.7 H (11.5-15.5) % Neutrophils # 16.0 H (1.3-7.7) k/uL Lymphocytes # 0.6 L (1.0-4.8) k/uL POC Glucose (mg/dL) 182 H 192 H (75-99) mg/dL 10/03/17 10/04/17 Range/Units 22:16 08:06 WBC (3.8-10.6) k/uL Hgb (11.4-16.0) gm/dL MCHC (31.0-37.0) g/dL RDW (11.5-15.5) % Neutrophils # (1.3-7.7) k/uL Lymphocytes # (1.0-4.8) k/uL POC Glucose (mg/dL) 182 H 162 H (75-99) mg/dL Assessment and Plan (1) Closed intertrochanteric fracture of left femur Current Visit: Yes Status: Acute Code(s): S72.142A - DISPLACED INTERTROCHANTERIC FRACTURE OF LEFT FEMUR, INIT SNOMED Code(s): 93685879 Plan: #1. Nonweightbearing to the left lower extremity #2. Continue routine postoperative care. #3. Daily dressing changes. #4. Continue anticoagulation. #5. Maintain brace to left wrist. #6. Likely discharge to rehab in the future.
[2017-10-04] MEDS ORDERED: HYDROmorphone 2 MG/ML 1 ML SYRINGE IVP PRN (08:56)
[2017-10-04] MEDS: PARoxetine 20 MG TAB PO SCH (09:40)
[2017-10-04] MEDS: LISINOPRIL 20 MG TAB PO SCH ×2 (09:40→20:28)
[2017-10-04] MEDS: OXYBUTYNIN XL 5 MG TAB.ER.24 PO SCH (09:40)
[2017-10-04] MEDS: CHOLECALCIFEROL 1,000 UNIT TAB PO SCH (09:40)
[2017-10-04] MEDS: ENOXAPARIN 40 MG/0.4 ML SYRINGE SQ SCH (09:44)
[2017-10-04] MEDS: JARDIANCE 25MG PO SCH (09:51)
[2017-10-04 11:32] LABS: Glucose,Whole Blood 231 mg/dL (75-99)
[2017-10-04] MEDS ORDERED: JARDIANCE 25MG PO SCH (12:00)
[2017-10-04] MEDS: JARDIANCE 10 MG PO SCH (12:09)
--- NOTE | 2017-10-04 13:34 | P.PN ---
Subjective Progress Note Date: 10/04/17 Principal diagnosis: hip fracture 66-year-old female that presented after a fall found to have a hip fracture. Patient complaining of some pain but says pain medicine is helping. No chest pains no palpitations no shortness of breath. Objective - Vital Signs Vital signs: Vital Signs Temp 97.8 F 10/04/17 08:43 Pulse 98 10/04/17 08:43 Resp 18 10/04/17 12:45 BP 150/65 10/04/17 08:43 Pulse Ox 94 L 10/04/17 08:43 Intake & Output 10/03/17 10/04/17 10/04/17 18:59 06:59 18:59 Intake Total 1761 1450 Output Total 1200 1300 1200 Balance 561 150 -1200 Weight 133.81 kg Intake: IV 1761 Sodium Chloride 0.9% 1, 560 000 ml @ 70 mls/hr IV . [id number] [facility] Rx#:[id number] Intake, IV Titration 700 Amount Sodium Chloride 0.9% 1, 700 000 ml @ 70 mls/hr IV . [id number] [facility] Rx#:[id number] Oral 750 Output: Urine 950 1300 1200 Uretheral (English) 700 Estimated Blood Loss 250 Other: Voiding Method Indwelling Catheter Indwelling Catheter Indwelling Catheter - Exam gen:alert and oriented lungs:clear to auscultation heart:s1s2 abdomen:soft and depressible,non tender ext:no edema - Labs CBC & Chem 7: 10/03/17 20:32 10/02/17 20:32 Labs: Abnormal Lab Results - Last 24 Hours (Table) 10/03/17 10/03/17 10/03/17 Range/Units 15:24 17:41 18:33 WBC (3.8-10.6) k/uL Hgb (11.4-16.0) gm/dL MCHC (31.0-37.0) g/dL RDW (11.5-15.5) % Neutrophils # (1.3-7.7) k/uL Lymphocytes # (1.0-4.8) k/uL POC Glucose (mg/dL) 104 H 150 H 182 H (75-99) mg/dL 10/03/17 10/03/17 10/03/17 Range/Units 19:48 20:32 22:16 WBC 17.1 H (3.8-10.6) k/uL Hgb 10.7 L (11.4-16.0) gm/dL MCHC 29.7 L (31.0-37.0) g/dL RDW 15.7 H (11.5-15.5) % Neutrophils # 16.0 H (1.3-7.7) k/uL Lymphocytes # 0.6 L (1.0-4.8) k/uL POC Glucose (mg/dL) 192 H 182 H (75-99) mg/dL 10/04/17 10/04/17 Range/Units 08:06 11:29 WBC (3.8-10.6) k/uL Hgb (11.4-16.0) gm/dL MCHC (31.0-37.0) g/dL RDW (11.5-15.5) % Neutrophils # (1.3-7.7) k/uL Lymphocytes # (1.0-4.8) k/uL POC Glucose (mg/dL) 162 H 231 H (75-99) mg/dL Assessment and Plan (1) Closed intertrochanteric fracture of left femur Narrative/Plan: s/p SURGERY YESTERDAY Pt complaining of pain, RN only giving her ultram Iaked her to give dilaudid as prescribed Current Visit: Yes Status: Acute Code(s): S72.142A - DISPLACED INTERTROCHANTERIC FRACTURE OF LEFT FEMUR, INIT SNOMED Code(s): 83369495 (2) Hyperlipidemia Narrative/Plan: Continue Lipitor Current Visit: Yes Status: Acute Code(s): E78.5 - HYPERLIPIDEMIA, UNSPECIFIED SNOMED Code(s): 55661025 (3) Essential hypertension Narrative/Plan: Continue lisinopril controlled Current Visit: Yes Status: Acute Code(s): I10 - ESSENTIAL (PRIMARY) HYPERTENSION SNOMED Code(s): 77733740 (4) CARLITA (obstructive sleep apnea) Narrative/Plan: Uses CPAP at home Current Visit: Yes Status: Acute Code(s): G47.33 - OBSTRUCTIVE SLEEP APNEA ( ADULT) (PEDIATRIC) SNOMED Code(s): 57910516 (5) Type 2 diabetes mellitus Narrative/Plan: levemir 35 units at at bedtime Accu-Cheks before meals and at bedtime with sliding scale insulin currently controlled Current Visit: Yes Status: Acute Code(s): E11.9 - TYPE 2 DIABETES MELLITUS WITHOUT COMPLICATIONS SNOMED Code(s): 10340148
[2017-10-04] MEDS: DIAZEPAM 5 MG TAB PO PRN (13:52)
[2017-10-04] MEDS ORDERED: HYDROcodone/APAP 5-325MG 1 EACH TAB PO PRN (15:25)
[2017-10-04 17:09] LABS: Glucose,Whole Blood 143 mg/dL (75-99)
[2017-10-04 19:53] LABS: Glucose,Whole Blood 260 mg/dL (75-99)
[2017-10-04] MEDS: ATORVASTATIN 10 MG TAB PO SCH (20:28)
[2017-10-04] MEDS: INSULIN DETEMIR 100 UNIT/ML 10 ML VIAL SQ SCH (20:28)
[2017-10-04] MEDS: VICTOZA SQ SCH (20:28)
[2017-10-04] MEDS: SENNOSIDES-DOCUSATE SODIUM 1 EACH TAB PO SCH (20:29)
[2017-10-04] MEDS: MONTELUKAST 10 MG TAB PO SCH (20:29)
[2017-10-04] MEDS: HYDROcodone/APAP 5-325MG 1 EACH TAB PO PRN (20:29)
[2017-10-05] MEDS: SODIUM CHLORIDE 0.9% 1,000 ML IV SCH ×2 (03:52)
[2017-10-05] MEDS: HYDROcodone/APAP 5-325MG 1 EACH TAB PO PRN (06:26)
[2017-10-05 07:01] VITALS: BP 127/59; RESP 15; TEMP 97.5
[2017-10-05 07:16] LABS: Glucose,Whole Blood 154 mg/dL (75-99)
[2017-10-05 07:33] LABS: Basophils % (A) 0 %; CH 26.6; CHCM 31.4; Eosinophils # (A) 0.1 k/uL (0-0.7); Eosinophils % (A) 2 %; HCT 29.6 % (34.0-46.0); HDW 2.73; HGB 9.4 gm/dL (11.4-16.0); Hypochromasia Slight; Luc # (Auto) 0.11; Luc % (Auto) 1; Lymphocytes # (A) 1.5 k/uL (1.0-4.8); Lymphocytes % (A) 18 %; MCHC 31.7 g/dL (31.0-37.0); MCV 85.2 fL (80.0-100.0); Monocytes # (A) 0.5 k/uL (0-1.0); Monocytes % (A) 6 %; Neutrophils % (A) 73 %; RBC 3.47 m/uL (3.80-5.40); RDW 15.6 % (11.5-15.5); WBC 8.2 k/uL (3.8-10.6); WBC (Perox) 8.75
[2017-10-05 08:24] VITALS: PULSE 91
--- NOTE | 2017-10-05 08:46 | P.PN ---
Subjective Progress Note Date: 10/05/17 This is a 66-year-old female who is status post closed reduction and intramedullary hip screw fixation of the left hip. This is postoperative day # 2. Patient states her pain is under control today. Patient states the pain in her left wrist has slightly improved today. Patient has no new complaints today. Objective - Vital Signs Vital signs: Vital Signs Temp 97.5 F L 10/05/17 07:00 Pulse 91 10/05/17 08:19 Resp 15 10/05/17 08:19 BP 127/59 10/05/17 07:00 Pulse Ox 93 L 10/05/17 00:58 Intake & Output 10/04/17 10/05/17 10/05/17 18:59 06:59 18:59 Intake Total 1400 Output Total 2300 2225 Balance -2300 -825 Intake: Intake, IV Titration 900 Amount Sodium Chloride 0.9% 1, 700 000 ml @ 70 mls/hr IV . [id number] [facility] Rx#:[id number] ceFAZolin 3 gm In Sodium 200 Chloride 0.9% 100 ml @ 100 mls/hr IVPB Q8HR [facility] Rx#:[id number] Oral 500 Output: Urine 2300 2225 Uretheral (English) 700 1025 Other: Voiding Method Indwelling Catheter Indwelling Catheter - Exam On exam patient is in no acute distress and is alert and oriented 3. Incisions are clean, dry, and intact. No drainage. Mild soft tissue swelling. Full foot and ankle motion without difficulty. Calf is soft and nontender. There is no swelling or ecchymosis of the left wrist. Patient has full range of motion of the left wrist. Neurovascular status and circulatory status are intact. - Labs CBC & Chem 7: 10/05/17 06:44 10/02/17 20:32 Labs: Abnormal Lab Results - Last 24 Hours (Table) 10/04/17 10/04/17 10/04/17 Range/Units 11:29 17:07 19:50 RBC (3.80-5.40) m/uL Hgb (11.4-16.0) gm/dL Hct (34.0-46.0) % RDW (11.5-15.5) % Plt Count (150-450) k/uL POC Glucose (mg/dL) 231 H 143 H 260 H (75-99) mg/dL 10/05/17 10/05/17 Range/Units 06:44 07:08 RBC 3.47 L (3.80-5.40) m/uL Hgb 9.4 L (11.4-16.0) gm/dL Hct 29.6 L (34.0-46.0) % RDW 15.6 H (11.5-15.5) % Plt Count 142 L (150-450) k/uL POC Glucose (mg/dL) 154 H (75-99) mg/dL Assessment and Plan (1) Closed intertrochanteric fracture of left femur Current Visit: Yes Status: Acute Code(s): S72.142A - DISPLACED INTERTROCHANTERIC FRACTURE OF LEFT FEMUR, INIT SNOMED Code(s): 64132225 Plan: #1. Nonweightbearing to the left lower extremity #2. Continue routine postoperative care. #3. Daily dressing changes. #4. Continue anticoagulation with Lovenox. #5. Maintain brace to left wrist as needed. #6. Likely discharge to rehab in the future.
[2017-10-05] MEDS ORDERED: HYDROcodone/APAP 7.5-325MG 1 EACH TAB PO PRN ×2 (08:47)
--- NOTE | 2017-10-05 08:59 | P.DS ---
Providers Date of admission: 10/02/17 22:06 Expected date of discharge: 10/05/17 Attending physician: Selvin Jimenez Consults: 10/02/17 21:27 Consult Physician Urgent Consulting Provider: Jasvir Venegas Consult Reason/Comments: Medical Management Do you want consulting provider notified?: Already Contacted Primary care physician: Halima Freeman - Discharge Diagnosis(es) (1) Closed intertrochanteric fracture of left femur Current Visit: Yes Status: Acute Hospital Course: This is a 66-year-old female who sustained an injury to the left hip after a fall. The patient was found to have an intertrochanteric fracture of the left femur in the emergency room. Patient is admitted for orthopedic evaluation. After discussion and consideration patient elects to proceed with closed reduction and intramedullary screw fixation of the left hip. The patient is seen preoperatively by Dr. Jimenez and cleared for surgery. X-rays of the left wrist were negative for any fracture or dislocation. Patient has a brace to the left wrist to wear as needed. Patient is admitted to [facility] on 10/02/2017 for closed reduction and intramedullary hip screw fixation left hip. The procedures performed without complication or sequelae. The patient is doing well postoperatively. Labs and vital signs are stable on day of discharge. On day of discharge patient's hip incision is healing well. There is minimal erythema. There is no drainage noted at this time. There is minimal soft tissue swelling to the hip and thigh. Patient has full foot and ankle motion without difficulty or pain. Neurovascular status to the left lower extremity is intact. Patient is discharged to rehab in good condition. Please see med rec for accurate list of home medications. Patient Condition at Discharge: Serious Plan - Discharge Summary Discharge Rx Participant: Yes New Discharge Prescriptions: New Enoxaparin [Lovenox] 40 mg SQ DAILY 30 Days #30 syringe HYDROcodone/APAP 7.5-325MG [[place] 7.5-325] 1 - 2 tab PO Q4-6H PRN #90 tab PRN Reason: Pain Sennosides-Docusate Sodium [Senokot-S] 1 tab PO BID #60 tablet No Action Montelukast [Singulair] 10 mg PO HS metFORMIN HCL 1,000 mg PO DAILY PARoxetine [Paxil] 20 mg PO DAILY Liraglutide [Victoza 2-Juan] 1.8 mg SQ HS Insulin Glargine [Lantus] 35 units SQ HS INSULIN LISPRO (HumaLOG) [HumaLOG] See Protocol SQ ACHS Cholecalciferol [Vitamin D3] 1,000 unit PO DAILY Tolterodine Tartrate [Detrol LA] 4 mg PO DAILY Simvastatin [Zocor] 20 mg PO HS Lisinopril [Zestril] 20 mg PO BID Empagliflozin [Jardiance] 25 mg PO DAILY Discharge Medication List Cholecalciferol [Vitamin D3] 1,000 unit PO DAILY 10/02/17 [History] Empagliflozin [Jardiance] 25 mg PO DAILY 10/02/17 [History] INSULIN LISPRO (HumaLOG) [HumaLOG] See Protocol SQ ACHS 10/02/17 [History] Insulin Glargine [Lantus] 35 units SQ HS 10/02/17 [History] Liraglutide [Victoza 2-Juan] 1.8 mg SQ HS 10/02/17 [History] Lisinopril [Zestril] 20 mg PO BID 10/02/17 [History] Montelukast [Singulair] 10 mg PO HS 10/02/17 [History] PARoxetine [Paxil] 20 mg PO DAILY 10/02/17 [History] Simvastatin [Zocor] 20 mg PO HS 10/02/17 [History] Tolterodine Tartrate [Detrol LA] 4 mg PO DAILY 10/02/17 [History] metFORMIN HCL 1,000 mg PO DAILY 10/02/17 [History] Enoxaparin [Lovenox] 40 mg SQ DAILY 30 Days #30 syringe 10/05/17 [Rx] HYDROcodone/APAP 7.5-325MG [[place] 7.5-325] 1 - 2 tab PO Q4-6H PRN #90 tab [Rx] Sennosides-Docusate Sodium [Senokot-S] 1 tab PO BID #60 tablet 10/05/17 [Rx] Follow up Appointment(s)/Referral(s): Halima Freeman DO [Primary Care Provider] - 1-2 days [facility] Visiting Nurse, [NON-STAFF] - Selvin Jimenez DO [Doctor of Osteopathic Medicine] - 1 Week Activity/Diet/Wound Care/Special Instructions: Nonweightbearing to the left lower extremity Daily dressing changes Maintain brace to left wrist to comfort Follow-up with [facility] in 1 week with any questions or concerns, please call with any questions or concerns, Discharge Disposition: TRANSFER TO SNF/ECF
[2017-10-05] MEDS ORDERED: ENOXAPARIN 40 MG/0.4 ML SYRINGE SQ SCH (09:00)
[2017-10-05] MEDS: CHOLECALCIFEROL 1,000 UNIT TAB PO SCH (09:39)
[2017-10-05] MEDS: JARDIANCE 10 MG PO SCH (09:40)
[2017-10-05] MEDS: OXYBUTYNIN XL 5 MG TAB.ER.24 PO SCH (09:41)
[2017-10-05] MEDS: ENOXAPARIN 40 MG/0.4 ML SYRINGE SQ SCH (09:41)
[2017-10-05] MEDS: LISINOPRIL 20 MG TAB PO SCH (09:41)
--- NOTE | 2017-10-05 09:53 | P.PN ---
Subjective Progress Note Date: 10/05/17 Principal diagnosis: hip fracture 66-year-old female that presented after a fall found to have a hip fracture. Patient complaining of some pain but says pain medicine is helping. No chest pains no palpitations no shortness of breath. She feels afraid to get up. Objective - Vital Signs Vital signs: Vital Signs Temp 97.5 F L 10/05/17 07:00 Pulse 91 10/05/17 08:19 Resp 15 10/05/17 08:19 BP 127/59 10/05/17 07:00 Pulse Ox 93 L 10/05/17 00:58 Intake & Output 10/04/17 10/05/17 10/05/17 18:59 06:59 18:59 Intake Total 1400 Output Total 2300 2225 Balance -2300 -825 Intake: Intake, IV Titration 900 Amount Sodium Chloride 0.9% 1, 700 000 ml @ 70 mls/hr IV . [id number] [facility] Rx#:[id number] ceFAZolin 3 gm In Sodium 200 Chloride 0.9% 100 ml @ 100 mls/hr IVPB Q8HR [facility] Rx#:[id number] Oral 500 Output: Urine 2300 2225 Uretheral (English) 700 1025 Other: Voiding Method Indwelling Catheter Indwelling Catheter - Exam gen:alert and oriented lungs:clear to auscultation heart:s1s2 abdomen:soft and depressible,non tender ext:no edema - Labs CBC & Chem 7: 10/05/17 06:44 10/02/17 20:32 Labs: Abnormal Lab Results - Last 24 Hours (Table) 10/04/17 10/04/17 10/04/17 Range/Units 11:29 17:07 19:50 RBC (3.80-5.40) m/uL Hgb (11.4-16.0) gm/dL Hct (34.0-46.0) % RDW (11.5-15.5) % Plt Count (150-450) k/uL POC Glucose (mg/dL) 231 H 143 H 260 H (75-99) mg/dL 10/05/17 10/05/17 Range/Units 06:44 07:08 RBC 3.47 L (3.80-5.40) m/uL Hgb 9.4 L (11.4-16.0) gm/dL Hct 29.6 L (34.0-46.0) % RDW 15.6 H (11.5-15.5) % Plt Count 142 L (150-450) k/uL POC Glucose (mg/dL) 154 H (75-99) mg/dL Assessment and Plan (1) Closed intertrochanteric fracture of left femur Narrative/Plan: ready for discharge per ortho Current Visit: Yes Status: Acute Code(s): S72.142A - DISPLACED INTERTROCHANTERIC FRACTURE OF LEFT FEMUR, INIT SNOMED Code(s): 57370808 (2) Hyperlipidemia Narrative/Plan: Continue Lipitor Current Visit: Yes Status: Acute Code(s): E78.5 - HYPERLIPIDEMIA, UNSPECIFIED SNOMED Code(s): 82368370 (3) Essential hypertension Narrative/Plan: Continue lisinopril controlled Current Visit: Yes Status: Acute Code(s): I10 - ESSENTIAL (PRIMARY) HYPERTENSION SNOMED Code(s): 91470486 (4) CARLITA (obstructive sleep apnea) Narrative/Plan: Uses CPAP at home Current Visit: Yes Status: Acute Code(s): G47.33 - OBSTRUCTIVE SLEEP APNEA ( ADULT) (PEDIATRIC) SNOMED Code(s): 41861403 (5) Type 2 diabetes mellitus Narrative/Plan: levemir 35 units at at bedtime Accu-Cheks before meals and at bedtime with sliding scale insulin currently controlled Current Visit: Yes Status: Acute Code(s): E11.9 - TYPE 2 DIABETES MELLITUS WITHOUT COMPLICATIONS SNOMED Code(s): 44995435 Plan: Plan for discharge to [facility] for rehab today.
[2017-10-05 12:15] LABS: Glucose,Whole Blood 241 mg/dL (75-99)
[2017-10-05] MEDS ORDERED: INSULIN ASPART 100 UNIT/ML 1 ML 10 ML VIAL SQ ONE (13:10)
[2017-10-05] MEDS: DIAZEPAM 5 MG TAB PO PRN (13:50)
[2017-10-05] MEDS ORDERED: PARoxetine 20 MG TAB PO SCH (21:00)
== END 2017-10-05 15:10 | DRG 482 ==
LOC: EC 18:58 → 3SUR 22:06
PROVIDERS: ADMIT Orthopaedic Surgery; ATTEND Orthopaedic Surgery
PROC: 0QS734Z Reposition Left Upper Femur with Internal Fixation Device, Percutaneous Approach (ICD-10-PCS; principal; 2017-10-03 13:30)
DX: S72.142A Displaced intertrochanteric fracture of left femur, initial encounter for closed fracture (principal); I10 Essential (primary) hypertension; E11.9 Type 2 diabetes mellitus without complications; W10.9XXA Fall (on) (from) unspecified stairs and steps, initial encounter; E78.5 Hyperlipidemia, unspecified; G47.33 Obstructive sleep apnea (adult) (pediatric); F41.9 Anxiety disorder, unspecified; F32.9 Major depressive disorder, single episode, unspecified; Z96.651 Presence of right artificial knee joint; Z96.612 Presence of left artificial shoulder joint; Z79.4 Long term (current) use of insulin; Z79.84 Long term (current) use of oral hypoglycemic drugs; Z88.6 Allergy status to analgesic agent; Z88.1 Allergy status to other antibiotic agents; Z79.899 Other long term (current) drug therapy; Z90.89 Acquired absence of other organs; Y92.009 Unspecified place in unspecified non-institutional (private) residence as the place of occurrence of the external cause; Y92.018 Other place in single-family (private) house as the place of occurrence of the external cause
CPT/HCPCS: 36415; 51702; 71010; 73502; 80053; 81001; 85025; 85610; 85730; 93005; 96374; 96375; 96376; 99285

== ENCOUNTER 2022-09-04 09:07 | Day surgery (SDC) | payer MEDICARE, BC ==
--- NOTE | 2022-09-04 07:35 | P.GSHP ---
History of Present Illness H&P Date: 09/04/22 Chief Complaint: Chronic cholecystitis 71-year-old female with complaints of right shoulder and abdominal discomforts. Patient with findings of a 2.5 cm gallstone. Symptoms are aggravated by greasy foods. No change in the color of her skin urine or stool. Past Medical History Past Medical History: Diabetes Mellitus, Hyperlipidemia, Hypertension, Sleep Apnea/CPAP/BIPAP Additional Past Medical History / Comment(s): uses c pap, retinal swelling to lft eye gets injections every 2 months History of Any Multi-Drug Resistant Organisms: None Reported Past Surgical History: Appendectomy, Section, Joint Replacement, Tonsillectomy Additional Past Surgical History / Comment(s): right knee replacement, left shoulder replacement ,pinning femur 2016, dental implants, Past Anesthesia/Blood Transfusion Reactions: Postoperative Nausea & Vomiting (PONV) Additional Past Anesthesia/Blood Transfusion Reaction / Comment(s): reports severe ponv, and "low pain tolerance" Smoking Status: Former smoker Medications and Allergies Home Medications Medication Instructions Recorded Confirmed Type Cholecalciferol [Vitamin D3 (25 1,000 unit PO DAILY 10/02/17 09/01/22 History Mcg = 1000 Iu)] Empagliflozin [Jardiance] 25 mg PO DAILY 10/02/17 09/01/22 History INSULIN LISPRO (HumaLOG) [humaLOG] See Protocol SQ ACHS 10/02/17 09/01/22 History Insulin Glargine [Lantus Vial] 35 units SQ ACHS 10/02/17 09/01/22 History Liraglutide [Victoza 2-Juan] 1.8 mg SQ HS 10/02/17 09/01/22 History Montelukast [Singulair] 25 mg PO HS 10/02/17 09/01/22 History PARoxetine [Paxil] 20 mg PO DAILY 10/02/17 09/01/22 History Simvastatin [Zocor] 20 mg PO HS 10/02/17 09/01/22 History lisinopriL [Zestril] 20 mg PO BID 10/02/17 09/01/22 History metFORMIN HCL [Glucophage] 500 mg PO BID 10/02/17 09/01/22 History Alendronate Sodium [Fosamax] 35 mg PO WEEKLY 09/01/22 09/01/22 History Melatonin [Melatonin ER] 10 mg PO HS PRN 09/01/22 09/01/22 History Multivitamin [Multivitamins Adult 1 each PO DAILY 09/01/22 09/01/22 History Gummies] Allergies Allergy/AdvReac Type Severity Reaction Status Date / Time codeine Allergy Rash/Hives Verified 09/01/22 13:29 erythromycin base Allergy Rash/Hives Verified 09/01/22 13:29 Surgical - Exam Physical exam: General: Well-developed, well-nourished HEENT: Normocephalic, sclerae nonicteric Abdomen: Nontender, nondistended Extremities: No edema Neuro: Alert and oriented Assessment and Plan (1) Chronic cholecystitis Narrative/Plan: 71-year-old female with chronic cholecystitis. We'll proceed with laparoscopic, possible open cholecystectomy at this time. Risks of bleeding, infection, bile leak, bile duct injury, retained common bile duct stone, trocar injury, conversion to an open procedure, hernia, anesthesia related complications were reviewed. The patient understands and wishes to proceed. Status: Acute Code(s): K81.1 - CHRONIC CHOLECYSTITIS SNOMED Code(s): 61972529
[~2022-09-04 09:07] MED LIST: ACETAMINOPHEN TAB 500 MG TAB PO PRN; DEXAMETHASONE SOD PHOSPHATE 4 MG/ML 1 ML VIAL IV ONE; HEPARIN SODIUM,PORCINE/PF 5,000 UNIT/0.5 ML SYRINGE SQ PRN; HYDROmorphone 0.5 MG/0.5 ML SYRINGE IVP PRN; LACTATED RINGERS 1,000 ML IV SCH; LIDOCAINE 1% (10MG/ML) FOR IV START INTRADERMA PRN; MIDAZOLAM 2 MG/2 ML VIAL IV PRN; ONDANSETRON 4 MG/2 ML VIAL IVP ONE
[2022-09-04 09:59] LABS: Glucose,Whole Blood 164 mg/dL (70-110)
[2022-09-04 10:17] LABS: Basophils % (A) 0 %; Eosinophils # (A) 0.1 k/uL (0-0.7); Eosinophils % (A) 2 %; HCT 38.7 % (34.0-46.0); HGB 13.4 gm/dL (11.4-16.0); Lymphocytes # (A) 1.6 k/uL (1.0-4.8); Lymphocytes % (A) 22 %; MCH 28.4 pg (25.0-35.0); MCHC 34.7 g/dL (31.0-37.0); MCV 81.8 fL (80.0-100.0); Mean Platelet Volume 8.6; Monocytes # (A) 0.3 k/uL (0-1.0); Monocytes % (A) 4 %; Neutrophils # (A) 4.8 k/uL (1.3-7.7); Neutrophils % (A) 69 %; Platelet Count 149 k/uL (150-450); RBC 4.73 m/uL (3.80-5.40); RDW 14.4 % (11.5-15.5)
[2022-09-04 10:33] LABS: ALT 19 U/L (4-34); AST 20 U/L (14-36); African American GFR (CKD) >90 (>60 ml/min/1.73 sqM); Albumin 4.4 g/dL (3.5-5.0); Alkaline Phosphatase 109 U/L (38-126); Anion Gap 9 mmol/L; Blood Urea Nitrogen 18 mg/dL (7-17); Calcium 9.1 mg/dL (8.4-10.2); Carbon Dioxide 25 mmol/L (22-30); Chloride 106 mmol/L (98-107); Glucose 161 mg/dL (74-99); Non-African American GFR(CKD) 88 (>60 ml/min/1.73 sqM); Potassium 4.2 mmol/L (3.5-5.1); Sodium 140 mmol/L (137-145); Total Bilirubin 0.8 mg/dL (0.2-1.3)
[2022-09-04] MEDS ORDERED: NEOSTIGMINE 1 MG/ML 10 ML VIAL ONE (10:45)
[2022-09-04] MEDS ORDERED: diphenhydrAMINE 50 MG/ML 1 ML VIAL ONE (10:45)
[2022-09-04] MEDS ORDERED: SUCCINYLCHOLINE CHLORIDE 200 MG/10 ML VIAL IV ONE (10:45)
[2022-09-04] MEDS ORDERED: LIDOCAINE 2% INJ 20 MG/ML (2 ML VIAL) ONE (10:45)
[2022-09-04] MEDS ORDERED: GLYCOPYRROLATE 0.2 MG/ML 2 ML VIAL ONE (10:45)
[2022-09-04] MEDS ORDERED: ONDANSETRON 4 MG/2 ML VIAL ONE (10:45)
[2022-09-04] MEDS ORDERED: PHENYLEPHRINE-0.9% NACL SYG 1,000 MCG/10 ML SYRINGE ONE (10:45)
[2022-09-04] MEDS ORDERED: PROPOFOL 10 MG/ML 20 ML VIAL IV ONE (10:45)
[2022-09-04] MEDS ORDERED: fentaNYL (PF) 50 MCG/ML 2 ML AMP ONE (10:45)
[2022-09-04] MEDS ORDERED: ROCURONIUM 10 MG/ML (5 ML VIAL) IV ONE (10:45)
[2022-09-04] MEDS ORDERED: BUPIVACAINE (PF) 0.25% 30 ML VIAL SQ ONE (10:48)
--- NOTE | 2022-09-04 12:04 | P.OP ---
Date of Procedure: 09/04/22 Procedure(s) Performed: PREOPERATIVE DIAGNOSIS: Chronic cholecystitis POSTOPERATIVE DIAGNOSIS: Same PROCEDURE: Laparoscopic cholecystectomy SURGEON: Andreina EBL: Minimal see anesthesia record ANESTHESIA: Gen. COMPLICATIONS: None OPERATIVE PROCEDURE: The patient was brought and placed on the operating room table in the supine position. The patient was placed under general anesthesia at that time. The abdomen was prepped and draped in the usual sterile fashion. A small curvilinear supraumbilical incision was made. The fascia was grasped with the Opal forceps. The fascia was retracted anteriorly. The Veress needle was advanced into the peritoneal cavity. The saline drop test was normal. Insufflation took place up to 15 mmHg. A 5 mm optical trocar was advanced and the peritoneal cavity. 2 additional 5 mm trochars were placed in the right upper quadrant under direct visualization. A 12 mm trocar was advanced into the epigastric incision site. The gallbladder was retracted superiorly and laterally. The peritoneum overlying the infundibulum was bluntly dissected. The patient's cystic duct was visualized. The junction between the cystic duct common and hepatic duct was identified. The critical view of safety was achieved after blunt dissection. The cystic duct was then divided after placement of 3 12 mm clips on the patient's side and one on the specimen side. The cystic artery was identified and clipped as well. A small vessel was seen along the gallbladder fossa and clipped as well. The gallbladder was then removed from the liver bed using electrocautery. The gallbladder was then removed from the epigastric trocar site with an Endo Catch bag. The gallbladder fossa was irrigated with saline. There was no evidence of any bleeding or biliary drainage seen. The fascia at the 12 millimeter site was closed using a Norm-Chencho 0 Vicryl stitch. The trochars were then removed. The skin at all 4 sites was closed using a 4-0 Monocryl stitch. Skin glue was utilized on the incision sites. At the end of this procedure the sponge and needle counts were correct. DISPOSITION: Stable to the recovery room
[2022-09-04 12:11] VITALS: TEMP 97.6
[2022-09-04] MEDS ORDERED: IBUPROFEN 600 MG TAB PO SCH (12:30)
[2022-09-04 12:31] VITALS: RESP 16
[2022-09-04 13:32] LABS: Glucose,Whole Blood 166 mg/dL (70-110)
[2022-09-04] MEDS ORDERED: HYDROcodone/APAP 5-325MG 1 EACH TAB ONE (13:44)
[2022-09-04] MEDS ORDERED: HYDROcodone/APAP 5-325MG 1 EACH TAB PO ONE (13:50)
[2022-09-04 15:02] VITALS: BP 115/68; PULSE 62
[2022-09-04] MEDS ORDERED: ACETAMINOPHEN TAB 325 MG TAB PO SCH (16:00)
== END 2022-09-04 15:13 | disposition home or self-care (01) ==
LOC: OR 09:07
PROVIDERS: ATTEND Surgery
DX: K80.10 Calculus of gallbladder with chronic cholecystitis without obstruction (principal); E11.9 Type 2 diabetes mellitus without complications; E78.5 Hyperlipidemia, unspecified; I10 Essential (primary) hypertension; Z90.49 Acquired absence of other specified parts of digestive tract; Z98.891 History of uterine scar from previous surgery; Z90.89 Acquired absence of other organs; Z96.651 Presence of right artificial knee joint; Z96.612 Presence of left artificial shoulder joint; Z87.891 Personal history of nicotine dependence; Z79.899 Other long term (current) drug therapy; Z79.84 Long term (current) use of oral hypoglycemic drugs
CPT/HCPCS: 88304; 80053; 85025; 47562; J2250; J0330; J1200; J1100; J2710; J0690; J2405; J3010; J2370; J2704; J1644; J2001

== ENCOUNTER 2024-04-22 09:33 | Day surgery (SDC) | payer MEDICARE, BC ==
[~2024-04-22 09:33] MED LIST changes: -ACETAMINOPHEN TAB 500 MG TAB PO PRN; -DEXAMETHASONE SOD PHOSPHATE 4 MG/ML 1 ML VIAL IV ONE; -HEPARIN SODIUM,PORCINE/PF 5,000 UNIT/0.5 ML SYRINGE SQ PRN; -HYDROmorphone 0.5 MG/0.5 ML SYRINGE IVP PRN; -LACTATED RINGERS 1,000 ML IV SCH; -MIDAZOLAM 2 MG/2 ML VIAL IV PRN; -ONDANSETRON 4 MG/2 ML VIAL IVP ONE
[2024-04-22 09:51] VITALS: TEMP 97.2
[2024-04-22] MEDS: LACTATED RINGERS 1,000 ML IV SCH (10:00)
[2024-04-22] MEDS: IV FLUID CONTINUATION 1,000 ML IV ONE (10:01)
[2024-04-22] MEDS ORDERED: PROPOFOL 10 MG/ML 20 ML VIAL IV ONE (10:06)
--- NOTE | 2024-04-22 10:11 | P.GSHP ---
History of Present Illness H&P Date: 04/22/24 Chief Complaint: Colon cancer screening 73-year-old female here for colonoscopy. Last colonoscopy 8 to 10 years ago. Last colonoscopy normal. No family history of colon cancer. Past Medical History Past Medical History: Diabetes Mellitus, Hyperlipidemia, Hypertension, Sleep Apnea/CPAP/BIPAP Additional Past Medical History / Comment(s): uses c pap, retinal swelling to lft eye gets injections every 2 months,bronchitis in past History of Any Multi-Drug Resistant Organisms: None Reported Past Surgical History: Appendectomy, Section, Cholecystectomy, Joint Replacement, Tonsillectomy Additional Past Surgical History / Comment(s): right knee replacement, left shoulder replacement ,pinning femur 2016, dental implants, Past Anesthesia/Blood Transfusion Reactions: Postoperative Nausea & Vomiting (PONV) Additional Past Anesthesia/Blood Transfusion Reaction / Comment(s): reports severe ponv, and "low pain tolerance" Smoking Status: Former smoker - Past Family History Father Family Medical History: No Reported History Medications and Allergies Home Medications Medication Instructions Recorded Confirmed Type Cholecalciferol [Vitamin D3 (25 600 unit PO DAILY 10/02/17 04/22/24 History Mcg = 1000 Iu)] Empagliflozin [Jardiance] 25 mg PO DAILY 10/02/17 04/22/24 History INSULIN LISPRO (HumaLOG) [humaLOG] See Protocol SQ ACHS 10/02/17 04/22/24 History Insulin Glargine [Lantus Vial] 20 units SQ HS 10/02/17 04/22/24 History Montelukast [Singulair] 25 mg PO HS 10/02/17 04/22/24 History PARoxetine [Paxil] 20 mg PO DAILY 10/02/17 04/22/24 History Simvastatin [Zocor] 20 mg PO DAILY 10/02/17 04/22/24 History lisinopriL [Zestril] 20 mg PO BID 10/02/17 04/22/24 History metFORMIN HCL [Glucophage] 500 mg PO BID 10/02/17 04/22/24 History Alendronate Sodium [Fosamax] 35 mg PO WEEKLY 09/01/22 04/22/24 History Melatonin [Melatonin ER] 10 mg PO HS PRN 09/01/22 04/22/24 History Multivitamin [Multivitamins Adult 1 each PO DAILY 09/01/22 04/22/24 History Gummies] Semaglutide [Ozempic] 1 mg SQ WEEKLY 04/22/24 04/22/24 History Allergies Allergy/AdvReac Type Severity Reaction Status Date / Time codeine Allergy Rash/Hives Verified 04/22/24 09:44 erythromycin base Allergy Rash/Hives Verified 04/22/24 09:44 Surgical - Exam Vital Signs Temp Pulse Resp BP Pulse Ox 97.2 F L 98 18 138/75 96 04/22/24 09:50 04/22/24 09:50 04/22/24 09:50 04/22/24 09:50 04/22/24 09:50 Physical exam: General: Well-developed, well-nourished HEENT: Normocephalic, sclerae nonicteric Abdomen: Nontender, nondistended Extremities: No edema Neuro: Alert and oriented Assessment and Plan (1) Colon cancer screening Narrative/Plan: Will proceed with colonoscopy at this time. Current Visit: Yes Status: Acute Code(s): Z12.11 - ENCOUNTER FOR SCREENING FOR MALIGNANT NEOPLASM OF COLON SNOMED Code(s): 070523134
[2024-04-22 10:17] LABS: Glucose,Whole Blood 143 mg/dL (70-110)
--- NOTE | 2024-04-22 10:31 | P.PCN ---
Date of Procedure: 04/22/24 Procedure(s) Performed: PREOPERATIVE DIAGNOSIS: Colon cancer screening POSTOPERATIVE DIAGNOSIS: Ascending colon polyp PROCEDURE: Colonoscopy with snare polypectomy ANESTHESIA: MAC SURGEON: Dhaval Hdz M.D. SPECIMENS: Polyp ENDOSCOPIC PROCEDURE: The patient was placed on the endoscopy table in the left decubitus position. The Olympus colonoscope was inserted into the anus and passed under direct visualization to the base of the cecum. The appendiceal orifice was visualized. From that point the scope was slowly withdrawn inspecting all surfaces carefully. There were no neoplastic inflammatory or polypoid lesions throughout the cecum. In the ascending colon a small polyp was seen and removed using the snare with cautery technique. The remainder of the ascending transverse descending sigmoid and rectum appeared normal. There was no visible diverticulosis. The patient's prep was slightly suboptimal. Digital rectal examination was normal. The patient was taken to the recovery room in stable condition per anesthesia guidelines. RECOMMENDATIONS: Await biopsy results. Repeat colonoscopy 5 to 10 years pending pathology.
[2024-04-22 10:40] LABS: Glucose,Whole Blood 125 mg/dL (70-110)
[2024-04-22 11:13] VITALS: BP 104/68; PULSE 86; RESP 17
== END 2024-04-22 11:14 | disposition home or self-care (01) ==
LOC: ORWHC2ENDO 09:33
PROVIDERS: ATTEND Surgery
DX: Z12.11 Encounter for screening for malignant neoplasm of colon (principal); D12.2 Benign neoplasm of ascending colon; E11.9 Type 2 diabetes mellitus without complications; E78.5 Hyperlipidemia, unspecified; I10 Essential (primary) hypertension; G47.33 Obstructive sleep apnea (adult) (pediatric); F41.9 Anxiety disorder, unspecified; Z79.84 Long term (current) use of oral hypoglycemic drugs; Z87.891 Personal history of nicotine dependence; Z88.1 Allergy status to other antibiotic agents; Z90.49 Acquired absence of other specified parts of digestive tract; Z96.612 Presence of left artificial shoulder joint; Z79.4 Long term (current) use of insulin; Z88.5 Allergy status to narcotic agent; Z86.010 Personal history of colon polyps
CPT/HCPCS: 88305; 45385; J2704